=== PATIENT | male | born 1945 | race Caucasian/White ===

== ENCOUNTER 2018-06-13 16:36 | Emergency (ER) | payer MEDICARE, BC ==
[2018-06-13] MEDS ORDERED: Bacitracin/Neomycin/Polymyxin B Oint 0.9 GM U/D Packet TOP ONE (16:54)
--- NOTE | 2018-06-13 17:38 | EDM.PDOC ---
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 No loss of function in injured area. No numbness/tingling. No other complaints. Bleeding well controlled. Tetanus updated 6 yrs ago. Right Hand Pain Score (Numeric/FACES): 3 - Related Data Allergies Allergy/AdvReac Type Severity Reaction Status Date / Time No Known Allergies Allergy Verified 06/13/18 16:44 Home Meds: Home Meds Calcium Carbonate [Calcium] 600 mg PO DAILY 06/13/18 [History] Cyanocobalamin (Vitamin B-12) [Vitamin B-12] 1,000 mcg PO DAILY 06/13/18 [ History] Fish Oil/DHA/EPA [Fish Oil 1,200 MG] 1 each PO DAILY 06/13/18 [History] Naproxen Sodium [Aleve] 440 mg PO DAILY 06/13/18 [History] Simvastatin [Zocor] 40 mg PO BEDTIME 06/13/18 [History] cephALEXin [Keflex] 500 mg PO Q8H #8 cap 06/13/18 [Rx] Past Medical History Cardiovascular History: Reports: High Cholesterol Genitourinary History: Reports: Other (See Below) Other Genitourinary History: urinary uplift - Infectious Disease History Infectious Disease History: Reports: Measles, Mumps - Past Surgical History GI Surgical History: Reports: Hernia, Abdominal Musculoskeletal Surgical History: Reports: Arthroscopic Knee, Other (See Below) Other Musculoskeletal Surgeries/Procedures:: left ankle surgery Social & Family History - Tobacco Use Smoking Status *Q: Former Smoker Years of Tobacco use: 30 Packs/Tins Daily: 1 Used Tobacco, but Quit: Yes Month/Year Tobacco Last Used: 1978 - Caffeine Use Caffeine Use: Reports: Coffee - Recreational Drug Use Recreational Drug Use: No ED ROS GENERAL - Review of Systems Review Of Systems: ROS reveals no pertinent complaints other than HPI. ED EXAM, SKIN/RASH Exam: See Below Exam Limited By: No Limitations General Appearance: Alert, WD/WN, No Apparent Distress Eye Exam: Bilateral Eye: EOMI, PERRL Head: Atraumatic, Normocephalic Respiratory/Chest: No Respiratory Distress Extremities: Normal Range of Motion, Normal Capillary Refill, Other (laceration noted right hand, as described in HPI. 4cm long, curves slightly. Hand/ fingers NVI, no deformity. Tendon function intact. ) ED SKIN PROCEDURES - Laceration/Wound Repair Right Hand Lac/Wound length In cm: 4 Appearance: Irregular, Clean Distal NVT: Neuro & Vascular Intact, No Tendon Injury Anesthetic Type: Local Local Anesthesia - Lidocaine (Xylocaine): 1% Plain Local Anesthetic Volume: Other (10) Skin Prep: Providone-Iodine (Betadine) Exploration/Debridement/Repair: Wound Explored, In a Bloodless Field, No Foreign Material Found Closed with: Sutures Suture Size: 3-0 # of Sutures: 7 Suture Type: Prolene, Interrupted Drain Placement: No Sterile Dressing Applied: Nurse Tetanus Status Addressed: Yes Complications: No Course - Vital Signs Last Recorded V/S: Last Vital Signs Temp 37.0 C 06/13/18 16:38 Pulse 88 06/13/18 16:38 Resp 20 06/13/18 16:38 BP 142/70 H 06/13/18 16:38 Pulse Ox 94 L 06/13/18 16:38 - Orders/Labs/Meds Meds: Medications Discontinued Medications Generic Name Dose Route Start Last Admin Trade Name Puja PRN Reason Stop Dose Admin Lidocaine HCl 10 ml 06/13/18 16:54 06/13/18 17:12 Xylocaine-Mpf 1% INJECT 06/13/18 16:55 10 ml ONETIME ONE Administration Neomycin/Polymyxin/Bacitracin 1 each 06/13/18 16:54 06/13/18 16:58 Triple Antibiotic Oint TOP 06/13/18 16:55 1 each ONETIME ONE Administration - Re-Assessments/Exams Free Text/Narrative Re-Assessment/Exam: 06/13/18 17:45 Wound repaired. Wound care instructions reviewed. Sutures out in 9-10 days. Precautions/signs of infection discussed prior to discharge. Will place patient on Keflex given area of injury/dirty environment and patient continuing to work on the farm. He usually takes antibiotics prior to dental work and has an appointment this week. Keflex will also cover for that precaution. Departure - Departure Time of Disposition: 17:35 Disposition: Home, Self-Care 01 Condition: Good Clinical Impression: Laceration of right hand Qualifiers: Encounter type: initial encounter Foreign body presence: without foreign body Qualified Code(s): S61.411A - Laceration without foreign body of right hand, initial encounter - Discharge Information *PRESCRIPTION DRUG MONITORING PROGRAM REVIEWED*: Not Applicable *COPY OF PRESCRIPTION DRUG MONITORING REPORT IN PATIENT SHANKAR: Not Applicable Prescriptions: cephALEXin [Keflex] 500 mg PO Q8H #8 cap Instructions: Sutured Wound Care, Sutured Wound Care, [id number] Referrals: PCP,Unknown [Primary Care Provider] - Forms: ED Department Discharge Additional Instructions: Keep area clean and dry. Soaking 1-2 times a day in Normal Saline wound wash for 15 minutes is a good way to clean the area. Afterwards you can apply topical antibiotic ointment, nonstick dressing, and Vet wrap to protect the area. Avoid grabbing and lifting things to keep injured area less stressed so that wound edges and sutures hold. Sutures out in 9-10 days. They do this for free at our clinic. Call and make an appointment. Take antibiotics as directed. Follow up for wound check if any signs of infection develop.
== END 2018-06-13 17:45 | disposition home or self-care (01) ==
LOC: LL.ED 16:36
DX: S61.411A Laceration without foreign body of right hand, initial encounter (principal); Z79.899 Other long term (current) drug therapy; Z87.891 Personal history of nicotine dependence; W22.8XXA Striking against or struck by other objects, initial encounter
CPT/HCPCS: 12002; 99283